=== PATIENT | male | born 1950 | race Caucasian/White ===

== ENCOUNTER 2024-06-18 10:13 | Day surgery (SDC) | payer OTHER, SELFPAY ==
[2024-06-17 16:10] VITALS: BMI 28.7
[2024-06-18 10:34] VITALS: BP 159/66; PULSE 52; RESP 10; TEMP 36.7; O2SAT 95
[2024-06-18 11:03] VITALS: BMI 28.6
[2024-06-18 11:55] VITALS: BP 160/75; PULSE 58; RESP 16; O2SAT 95
[2024-06-18] MEDS: fentaNYL CIT INJ 50 mCg/ML AMP 2ML IV (11:56)
[2024-06-18] MEDS: MIDAZOLAM INJ 1 MG/ML VIAL 2 ML 2 MG IV (11:56)
[2024-06-18 12:00] VITALS: BP 155/68; PULSE 56; RESP 12; TEMP 36.7; O2SAT 96
--- NOTE | 2024-06-18 12:03 | EKG_ITS ---
[facility] Test Date: 2024-06-18 Pat Name: ROHINI REYNA Department: Room: - Gender: Male Environmental Analyst: : 1950 Requested By: Rose Mary Chao Order Number: [id number] Reading MD: Rose Mary Chao Measurements Intervals [place] Rate: 53 P: 48 WI: 179 QRS: 36 QRSD: 120 T: 59 QT: 493 QTc: 465 Interpretive Statements SINUS BRADYCARDIA WITH FREQUENT SUPRAVENTRICULAR PREMATURE COMPLEXES MODERATE INTRAVENTRICULAR CONDUCTION DELAY NONSPECIFIC T-WAVE ABNORMALITY PROLONGED QT INTERVAL Compared to ECG 09/25/2019 09:18:26 Intraventricular conduction delay now present Prolonged QT interval now present Sinus rhythm no longer present Short WI interval no longer present Incomplete right bundle-branch block no longer present T-wave abnormality still present /store/S0/[id number]/ecg/[id number].pdf
[2024-06-18 12:15] VITALS: BP 159/71; PULSE 59; RESP 14; O2SAT 96
[2024-06-18 12:28] VITALS: BP 128/70; PULSE 57; RESP 9; O2SAT 92
--- NOTE | 2024-06-18 22:36 | ESOP_ITS ---
RE: ROHINI REYNA : 1950 DATE OF OPERATION: 06/18/2024 PROCEDURE PERFORMED: 1. Synchronized cardioversion. 2. Conscious sedation for 30-minute duration PREPROCEDURE DIAGNOSIS: Atrial fibrillation. HISTORY AND INDICATIONS: The patient is a 74-year-old male with a past medical history of atrial fibrillation. He has been on antiarrhythmic _ Eliquis, amiodarone. He continues to have atrial fibrillation episodes and synchronized cardioversion was recommended. DESCRIPTION OF PROCEDURE: The patient was brought to cardiac catheterization laboratory, conscious sedation was given. Informed consent obtained. The patient was given 2 mg of Versed and 75 mcg of fentanyl for conscious sedation. The patient was attached to the defibrillator and pads. Just before cardioversion, the patient went back to sinus rhythm with PACs. Cardioversion was not performed, 12 lead EKG showed sinus rhythm with PACs and PVC. SUMMARY OF FINDINGS AND SUGGESTIONS: Attempted cardioversion, but the patient is back to normal sinus rhythm, hence did not proceed with cardioversion procedure. The patient will be discharged home in stable condition after recovery from sedation. DT: 12:50:56 TT: 17:10:00 Ref: [id number] - TID: [id number] [facility]
== END 2024-06-18 12:30 | disposition home or self-care (01) ==
LOC: SASD 10:13 → SCCL 10:28
PROVIDERS: PCP Family Medicine; Referring Provider Internal Medicine Cardiovascular Disease; Visit Provider Internal Medicine Cardiovascular Disease
PROC: 5A2204Z Restoration of Cardiac Rhythm, Single (ICD-10-PCS; CPT 92960; principal; 2024-06-18 11:30)
DX: I48.91 Unspecified atrial fibrillation (principal); Z01.810 Encounter for preprocedural cardiovascular examination; Z95.1 Presence of aortocoronary bypass graft; I10 Essential (primary) hypertension; E11.9 Type 2 diabetes mellitus without complications; E66.9 Obesity, unspecified; E78.00 Pure hypercholesterolemia, unspecified; E88.810 Metabolic syndrome; I25.118 Atherosclerotic heart disease of native coronary artery with other forms of angina pectoris; E78.5 Hyperlipidemia, unspecified; Z68.28 Body mass index [BMI] 28.0-28.9, adult
CPT/HCPCS: 92960; 93005; J2250; J3010

== ENCOUNTER → 2024-06-19 | Outpatient (CLI) | payer OTHER, SELFPAY ==
[2024-06-19 15:52] LABS: Collection Type, Urine Clean Catch; Squamous Epithelial Cell,Urine 0 /hpf (0-5)
[2024-06-19 16:15] LABS: Basophils % (Auto) 1 % (0-2.5); Eosinophils # (Auto) 0.1 Thou/mm3 (0.0-0.5); Eosinophils % (Auto) 2 % (0-10); Hematocrit 30.8 % (41.0-53.0); Immature Granulocytes % (Auto) 1 % (0-0); Immature Granulocytes Auto 0.03 Thou/mm3 (0.00-0.00); Lymphocytes # (Auto) 0.9 Thou/mm3 (1.0-4.8); Lymphocytes % (Auto) 16 % (10-50); Mean Corpuscular HGB Conc 32.5 g/dl (31.0-37.0); Mean Corpuscular Hemoglobin 30.8 pg (25.0-35.0); Mean Corpuscular Volume 95 fL (80-100); Monocytes # (Auto) 0.4 Thou/mm3 (0.0-0.8); Monocytes % (Auto) 8 % (0-12); Neutrophils # (Auto) 4.2 Thou/mm3 (1.8-7.7); Neutrophils % (Auto) 73 % (37-80); Nucleated Red Blood Cell % 0 /100 WBC (0); Platelet Count 181 Thou/mm3 (140-440); RDW Standard Deviation 48.3 fL (35.1-43.9); Red Blood Count 3.25 Miln/mm3 (4.50-5.90); White Blood Count 5.7 Thou/mm3 (3.8-10.6)
[2024-06-19 16:21] LABS: Bilirubin,Urine Negative (Negative); Blood,Urine Negative (Negative); Clarity,Urine Clear (Clear/Hazy); Color,Urine Yellow (Lt Yel-Yel); Culture Indicated,Urine Not Indicated; Glucose, Urine Negative (Negative); Hyaline Casts,Urine 1 /hpf (0-1); Ketones,Urine Negative (Negative); Leukocyte Esterase,Urine Negative (Negative); Nitrite,Urine Negative (Negative); PH,Urine 5.5 (5.0-7.0); Protein,Urine Trace (Neg - Trace); RBC,Urine 1 /hpf (0-3); Specific Gravity,Urine 1.016 (1.001-1.035); WBC,Urine 1 /hpf (0-5)
[2024-06-19 16:22] LABS: Glucose Estimated Average 140 mg/dL (80-131); Hemoglobin A1C 6.5 % Hgb (4.8-6.0)
[2024-06-19 16:26] LABS: Creatinine MALB Rnd Ur 118 mg/dL (30-125); Microalbumin Creat Ratio 32 mg/gCrea (<30); Microalbumin, Random Urine 38 mg/L (0-300)
[2024-06-19 16:31] LABS: Alanine Aminotransferase 13 U/L (10-49); Albumin, Serum 4.3 gm/dL (3.4-4.8); Albumin/Globulin Ratio 2.3 (1.2-2.2); Alkaline Phosphatase 68 U/L (46-116); Anion Gap 9 (7-16); Aspartate Amino Transferase < 10 U/L (0-34); BUN/Creatinine Ratio 17 Ratio (12-20); Bilirubin,Total 0.5 mg/dL (0.3-1.2); Blood Urea Nitrogen 36 mg/dL (9-23); Calcium 9.3 mg/dL (8.3-10.6); Calcium (Corrected) 9.3 mg/dL (8.5-10.1); Carbon Dioxide 30.2 mMol/L (20.0-31.0); Cardiac Risk Estimate 2.8 RATIO (4.0-6.7); Chloride 101 mMol/L (98-107); Cholesterol 156 mg/dL (132-200); Creatinine (Component) 2.1 mg/dL (0.6-1.3); Globulin 1.9 gm/dL (2.3-3.5); Glucose 166 mg/dL (74-106); HDL Cholesterol 56 mg/dL (40-60); LDL Cholesterol,Calculated 70 mg/dL (0-130); Osmolality,Calculated 291 (275-295); Potassium 4.3 mMol/L (3.4-5.1); Sodium 140 mMol/L (136-145); Thyroid Stimulating Hormone 0.63 uIU/mL (0.55-4.78); Total Protein 6.2 gm/dL (5.7-8.2); Triglycerides 152 mg/dL (30-150); eGFR 32 See Note
== END | disposition home or self-care (01) ==
PROVIDERS: PCP Nurse Practitioner Family; Referring Provider Nurse Practitioner Family; Visit Provider Nurse Practitioner Family
DX: Z00.00 Encounter for general adult medical examination without abnormal findings (principal)
CPT/HCPCS: 36415; 80053; 80061; 81001; 82043; 82570; 83036; 84153; 84443; 85025

== ENCOUNTER → 2024-07-11 | Outpatient (CLI) | payer OTHER, SELFPAY ==
[2024-07-11 13:35] LABS: Alanine Aminotransferase 19 U/L (10-49); Albumin, Serum 4.1 gm/dL (3.4-4.8); Albumin/Globulin Ratio 2.2 (1.2-2.2); Alkaline Phosphatase 59 U/L (46-116); Anion Gap 8 (7-16); Aspartate Amino Transferase 14 U/L (0-34); BUN/Creatinine Ratio 16 Ratio (12-20); Bilirubin,Total 0.5 mg/dL (0.3-1.2); Blood Urea Nitrogen 33 mg/dL (9-23); Calcium 8.9 mg/dL (8.3-10.6); Calcium (Corrected) 8.9 mg/dL (8.5-10.1); Carbon Dioxide 29.4 mMol/L (20.0-31.0); Chloride 101 mMol/L (98-107); Creatinine (Component) 2.1 mg/dL (0.6-1.3); Globulin 1.9 gm/dL (2.3-3.5); Glucose 194 mg/dL (74-106); Osmolality,Calculated 287 (275-295); Potassium 3.9 mMol/L (3.4-5.1); Sodium 138 mMol/L (136-145); eGFR 32 See Note
== END | disposition home or self-care (01) ==
LOC: COPL 12:39
PROVIDERS: PCP Family Medicine; Referring Provider Nurse Practitioner Family; Visit Provider Nurse Practitioner Family
DX: N18.2 Chronic kidney disease, stage 2 (mild) (principal)
CPT/HCPCS: 36415; 80053